=== PATIENT | female | born 1980 | race Caucasian/White ===

== ENCOUNTER 2021-07-09 19:15 | Emergency (ER) | payer OTHER ==
[~2021-07-09] VITALS: Ht 160 cm; Wt 61.2 kg
[2021-07-09 20:02] VITALS: BP 142/83
--- NOTE | 2021-07-09 21:00 | NUR ---
Patient discharged to home in stable condition. Written and verbal after care instructions given. Patient verbalizes understanding of instruction.
[2021-07-09] MEDS ORDERED: NAPR-1164 PO (21:02)
== END 2021-07-09 21:00 | disposition home or self-care (01) ==
LOC: ER 19:17
DX: S93.401A Sprain of unspecified ligament of right ankle, initial encounter (principal); W10.9XXA Fall (on) (from) unspecified stairs and steps, initial encounter; Y93.89 Activity, other specified; Y92.89 Other specified places as the place of occurrence of the external cause; Y99.8 Other external cause status
CPT/HCPCS: 73610-TC

== ENCOUNTER 2021-11-16 18:04 | Emergency (ER) | payer OTHER ==
[~2021-11-16] VITALS: Ht 165.1 cm; Wt 54.0 kg
[~2021-11-16 18:04] MED LIST: NAPR-1164 PO
[2021-11-16 18:12] VITALS: BP 151/77
--- NOTE | 2021-11-16 18:18 | NUR ---
BIBS FOR C/O DYSURIA AND HEMATURIA X1 DAY. RATES PAIN 7/10. ABDOMEN SOFT AND NON-DISTENDED. WILL CONTINUE TO MONITOR THE PATIENT.
--- NOTE | 2021-11-16 18:21 | NUR ---
URINE SAMPLE SENT TO LAB
[2021-11-16 19:39] LABS: BILIRUBIN,URINE NEGATIVE (NEGATIVE); COLOR,URINE AMBER (YELLOW); LEUKOCYTE ESTERASE ,URINE MODERATE (NEGATIVE); NITRITE, URINE POSITIVE (NEGATIVE); PROTEIN,URINE 100 mg/dl (NEGATIVE); UGLUCOSE NEGATIVE (NEGATIVE)
[2021-11-16 20:18] LABS: BACTERIA,URINE 3+ /HPF (None Seen); RBC,URINE 51-80 /HPF (0-2); WBC,URINE 51-80 /HPF (0-3)
[2021-11-16] MEDS ORDERED: CEPH500C2 PO (20:25)
[2021-11-16] MEDS ORDERED: CEPHALEXIN MONOHYDRATE 500 MG CAPSULE PO ONE ×2 (20:30→20:31)
--- NOTE | 2021-11-16 20:35 | NUR ---
Patient discharged to home in stable condition. Written and verbal after care instructions given. Patient verbalizes understanding of instruction.
== END 2021-11-16 20:45 | disposition home or self-care (01) ==
LOC: ER 18:04
DX: N39.0 Urinary tract infection, site not specified (principal); Z79.1 Long term (current) use of non-steroidal anti-inflammatories (NSAID)
CPT/HCPCS: 81001; 87086-TC